=== PATIENT | male | born 1985 | race Caucasian/White ===

== ENCOUNTER 2017-10-03 18:35 | Emergency (ER) | payer MEDICAID ==
--- NOTE | 2017-10-03 18:50 | EDM.PDOC ---
ED HPI GENERAL MEDICAL PROBLEM - General Chief Complaint: Upper Extremity Injury/Pain Stated Complaint: RIGHT ARM SWOLLEN Time Seen by Provider: 10/03/17 18:50 Source of Information: Reports: Patient - History of Present Illness INITIAL COMMENTS - FREE TEXT/NARRATIVE: Patient is here for evaluation of pain to his right wrist. He states that he was arrested on Sunday and was placed in handcuffs. He states that Sunday and Sunday he noticed that he started to have some pain and swelling to his right wrist. Denies any erythema. Denies any specific injury to this. He's had no numbness or tingling to his fingers. Right Wrist Pain Score (Numeric/FACES): 8 - Related Data Allergies Allergy/AdvReac Type Severity Reaction Status Date / Time No Known Allergies Allergy Verified 10/03/17 18:44 Home Meds: Home Meds . [No Known Home Meds] 10/03/17 [History] Social & Family History - Tobacco Use Smoking Status *Q: Current Some Day Smoker Years of Tobacco use: 1 Packs/Tins Daily: 0.1 - Caffeine Use Caffeine Use: Reports: None - Recreational Drug Use Recreational Drug Use: No Review of Systems - Review of Systems Review Of Systems: See Below Constitutional: Reports: No Symptoms Respiratory: Reports: No Symptoms Cardiovascular: Reports: No Symptoms Musculoskeletal: Reports: Joint Pain, Muscle Stiffness Skin: Reports: Lumps. Denies: Rash ED EXAM, GENERAL - Physical Exam Exam: See Below Exam Limited By: No Limitations General Appearance: Alert, WD/WN, No Apparent Distress Cardiovascular: Normal Peripheral Pulses Extremities: Normal Range of Motion, Other (Localized swelling just proximal to right wrist, posterior aspect. No erythema or ecchymosis. Mild-moderate tenderness localized to this area. FROM of wrist. NV intact. ) Course - Vital Signs Last Recorded V/S: Last Vital Signs Temp 96.3 F 10/03/17 18:41 Pulse 89 10/03/17 18:41 Resp 16 10/03/17 18:41 BP 137/95 H 10/03/17 18:41 Pulse Ox 97 10/03/17 18:41 - Orders/Labs/Meds Orders: Active Orders 24 hr Category Date Time Status Wrist 2V Rt [CR] Stat Exams 10/03/17 18:55 Taken Meds: Medications Discontinued Medications Generic Name Dose Route Start Last Admin Trade Name Freq PRN Reason Stop Dose Admin Ibuprofen 800 mg 10/03/17 18:56 10/03/17 19:00 Motrin PO 10/03/17 18:57 800 mg ONETIME ONE Administration - Re-Assessments/Exams Free Text/Narrative Re-Assessment/Exam: Will give 800 mg ibuprofen for pain. 2 view x-ray of the wrist to further assess. 10/03/17 19:03 X-rays unremarkable, official radiology report is pending. Patient pain is already improving with the Ativan. Recommend to be as tolerated, NSAIDs and ice to this area. If symptoms not significantly improved over the next week he is to follow-up in the clinic. 10/03/17 19:35 Departure - Departure Time of Disposition: 19:36 Disposition: Home, Self-Care 01 Condition: Good Clinical Impression: Wrist pain, acute Qualifiers: Laterality: right Qualified Code(s): M25.531 - Pain in right wrist - Discharge Information Instructions: Wrist Pain, Adult, [id number] Referrals: Nona Cordova PA [Emergency Provider] - Forms: ED Department Discharge Additional Instructions: Rest, activity as tolerated. Ibuprofen 600 mg 3 times daily. Ice 15 minutes every 2-3 hours as needed. If pain not significantly improved over the next 7-10 days or Any worsening in pain follow-up in the clinic at [phone] or certainly return to the emergency room if needed. - My Orders Last 24 Hours: My Active Orders 10/03/17 18:55 Wrist 2V Rt [CR] Stat - Assessment/Plan Last 24 Hours: My Active Orders 10/03/17 18:55 Wrist 2V Rt [CR] Stat
[2017-10-03] MEDS ORDERED: Ibuprofen 800 MG Tab PO ONE (18:56)
--- NOTE | 2017-10-04 07:06 | CR ---
Right wrist: Two views of the right wrist were obtained. Comparison: No previous study. Two sclerotic areas compatible with incidental bone islands are noted within the distal radius. Joint spaces within the wrist are preserved. Soft tissue swelling is noted. No acute fracture or other abnormality is appreciated. Impression: 1. Incidental findings. No acute bony abnormality is seen on two-view right wrist exam. Diagnostic code #2
== END 2017-10-03 19:41 | disposition home or self-care (01) ==
LOC: JD.ED 18:35
DX: M25.531 Pain in right wrist (principal)
CPT/HCPCS: 73100; 99283; A9270; 99282